=== PATIENT | female | born 1965 | race Caucasian/White ===

== ENCOUNTER 2016-09-24 07:23 | Day surgery (SDC) | payer OTHER ==
[~2016-09-24] VITALS: Ht 167.6 cm; Wt 90.4 kg
[2016-09-24] VITALS (13 sets, daily range): BP systolic 111–143; BP diastolic 73–94; PULSE 16–96; TEMP 97.3–98.4
[~2016-09-24 07:23] MED LIST: ALLEGRA30 MG PO; AXERT6.25 MG; CALCIUM 600600 M2 PO; DILTIAZEM240 M1 PO; LEVOTHYROXIN0.025 MG PO; VITAMIN D 400400 IU PO
[2016-09-24] MEDS ORDERED: CARDIZEM120 MG PO (08:08)
[2016-09-24] MEDS ORDERED: ELIQUIS 5MG PO (08:08)
[2016-09-24] MEDS ORDERED: VITAMIN D32000 I1 PO (08:09)
== END 2016-09-24 13:00 | disposition home or self-care (01) ==
LOC: SDCO 07:23
DX: D12.3 Benign neoplasm of transverse colon (principal); D12.5 Benign neoplasm of sigmoid colon; K64.0 First degree hemorrhoids; K64.4 Residual hemorrhoidal skin tags; T81.89XA Other complications of procedures, not elsewhere classified, initial encounter; R56.9 Unspecified convulsions
CPT/HCPCS: OP; 99202; J2250; J2405; J3010; J7030